=== PATIENT | male | born 1975 | race Caucasian/White ===

== ENCOUNTER → 2019-10-27 19:01 | Outpatient (ROUT) | payer SELFPAY ==
[2019-10-27 19:25] LABS: Hematocrit 46.6 % (41-53); Hemoglobin 15.7 g/dL (13.5-17.5); Mean Corpuscular HGB Conc 33.8 % (30-36); Mean Corpuscular Hemoglobin 29.9 PG (26-34); Mean Corpuscular Volume 88.4 fL (80-100); Platelet Count 361 X10^3/uL (150-400); Red Blood Cell Count 5.27 X10^6/uL (4.5-5.9); White Blood Cell Count 7.8 X10^3/uL (4.5-11.0)
[2019-10-27 19:27] LABS: Alanine Aminotransferase 38 IU/L (<50); Albumin 4.7 g/dL (3.5-5.0); Albumin Globulin Ratio 1.6 (1.0-2.8); Alkaline Phosphatase 71 U/L (38-126); Aspartate Aminotransferase 33 IU/L (17-59); BUN Creatinine Ratio 27.5 (6-22); Bilirubin Total 0.8 mg/dL (0.2-1.3); Blood Urea Nitrogen 22 mg/dL (9-20); Calcium 9.8 mg/dL (8.4-10.2); Carbon Dioxide 28 mmol/L (22-32); Chloride 98 mmol/L (98-107); Cholesterol 268 mg/dL (140-199); Estimated Glomerular Filt Rate > 60.0 mL/min (>60); Globulin 2.9 g/dL (1.7-4.1); Glucose 92 mg/dL (70-100); HDL Cholesterol 43 mg/dL (40-60); HEMOLYSIS < 15 (0-50); LDL Cholesterol Calculated 198 mg/dL (<100); Potassium 5.3 mmol/L (3.4-5.1); Sodium 135 mmol/L (137-145); Total Protein 7.6 g/dL (6.3-8.2); Triglycerides 136 mg/dL (35-150); Uric Acid 6.3 mg/dL (3.5-8.5)
[2019-10-27 19:28] LABS: Add Manual Diff / Slide Review YES
[2019-10-27 19:57] LABS: Neutrophils Absolute Manual 3900 /uL (3000-5900); Total Cells Counted 100
[2019-10-27 19:58] LABS: RBC Morphology Normal Morphology
== END ==
PROVIDERS: Visit Provider Nurse Practitioner
DX: M10.9 Gout, unspecified (principal); I10 Essential (primary) hypertension; R53.1 Weakness; E78.2 Mixed hyperlipidemia
CPT/HCPCS: 80053; 80061; 84443; 84550; 85025

== ENCOUNTER 2020-09-26 11:43 | Emergency (ER) | payer OTHER, SELFPAY ==
[2020-09-26 12:00] VITALS: BP 135/103; PULSE 97; RESP 18; TEMP 36.1; O2SAT 97; BMI 35.6
--- NOTE | 2020-09-26 12:21 | PC.NURSE ---
patient declines application of c-collar. patient has no tenderness to c-spine, normal ROM. Some stiffness noted. Dr Driscoll aware
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
[2020-09-26 12:53] VITALS: PULSE 98; O2SAT 98
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
[2020-09-26 13:08] VITALS: BP 154/102; PULSE 93; O2SAT 99
[2020-09-26 13:30] VITALS: BP 151/75; PULSE 87; O2SAT 97
[2020-09-26 14:00] VITALS: BP 151/89; PULSE 88; O2SAT 98
[2020-09-26 14:30] VITALS: BP 152/78; PULSE 87; O2SAT 98
[2020-09-26] MEDS: OFLOXACIN 0.3% OTIC 5 ML 3 DROPS EAR-RIGHT (15:22)
== END 2020-09-26 15:33 | disposition home or self-care (01) ==
PROVIDERS: Emergency Provider Nurse Practitioner Family; PCP Nurse Practitioner
DX: S09.301A Unspecified injury of right middle and inner ear, initial encounter (principal); S06.9X1A Unspecified intracranial injury with loss of consciousness of 30 minutes or less, initial encounter; W19.XXXA Unspecified fall, initial encounter
CPT/HCPCS: 70450; 99283; 99284

== ENCOUNTER 2020-09-29 20:06 | Emergency (ER) | payer OTHER, SELFPAY ==
[2020-09-29 20:13] VITALS: BP 179/112; PULSE 93; RESP 16; TEMP 36.3; O2SAT 100; BMI 35.6
--- NOTE | 2020-09-29 20:15 | PC.NURSE ---
Pt declines IV at this time after two unsuccessful attempts, also declines quality assurance monitor final.
--- NOTE | 2020-09-29 20:25 | DI.CT.S_ITS ---
PROCEDURE: CT STROKE INDICATIONS: code stroke TECHNIQUE: Noncontrast 4.5 mm thick angled axial sections acquired from the foramen magnum to the vertex, with coronal reformats. For radiation dose reduction, the following was used: automated exposure control, adjustment of mA and/or kV according to patient size. COMPARISON: [facility], CT, CT HEAD/BRAIN WO CON, 09/26/2020, 12:57. FINDINGS: Image quality: Excellent. CSF spaces: Basal cisterns are patent. No extra-axial fluid collections. Ventricles are normal in size and shape. Brain: No midline shift. No intracranial masses or hemorrhage. Mosley-white matter interface is normal. Skull and face: Calvarium and visualized facial bones are intact, without suspicious lesions. Nonspecific scattered subcutaneous scalp nodules may represent sebaceous cyst. Sinuses: Visualized sinuses and mastoids are clear. IMPRESSION: No acute intracranial abnormality. Findings were discussed with Dr. Daniel of the Emergency Department by telephone on 09/29/2020 at 8:39 PM. This study fulfills neurological imaging criteria for inclusion or exclusion of acute stroke therapies based on available published neurological imaging guidelines. Dictated by: Nael De Oliveira M.D. on 09/29/2020 at 20:37 Approved by: Nael De Oliveira M.D. on 09/29/2020 at 20:40
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
--- NOTE | 2020-09-29 21:30 | PC.NURSE ---
2100 I attempted an IV in Right forearm and girlfriend at bedside states he is uncomfortable and you're not getting it so I'm going to need you to take it out. I removed IV and attempted to explain to her and the patient that doctor wants him to have an IV and that this is a good vein if they will allow me to attempt it. Patient refuses IV at this time and states they already did a CT and didn't find anything. I want to go. Primary RN Lizeth informed.
[2020-09-29 21:41] LABS: Add Manual Diff / Slide Review NO; Basophils Absolute Auto 0 /uL (0-100); Basophils Percent Auto 0.4 % (0-2); Eosinophils Absolute Auto 200 /uL (0-450); Eosinophils Percent Auto 1.7 % (2-4); Hematocrit 45.9 % (41-53); Hemoglobin 15.8 g/dL (13.5-17.5); Lymphocytes Absolute Auto 2700 /uL (1100-4500); Lymphocytes Percent Auto 26.8 % (25-40); Mean Corpuscular HGB Conc 34.4 % (30-36); Mean Corpuscular Hemoglobin 30.4 PG (26-34); Mean Corpuscular Volume 88.4 fL (80-100); Monocytes Absolute Auto 800 /uL (0-900); Monocytes Percent Auto 7.7 % (3-14); Neutrophils Absolute Auto 6400 /uL (1500-7000); Neutrophils Percent Auto 63.4 % (50-75); Platelet Count 243 X10^3/uL (150-400); Red Blood Cell Count 5.19 X10^6/uL (4.5-5.9); Red Cell Distribution Width 13.6 % (11.6-14.8); White Blood Cell Count 10.1 X10^3/uL (4.5-11.0)
[2020-09-29 21:49] LABS: INR 1.1 (0.9-1.3); Prothrombin Time 12.4 SECONDS (10.1-12.7)
[2020-09-29 21:51] LABS: PTT Partial Thromboplastin Tim 32 SECONDS (26.4-36.2)
[2020-09-29 21:53] LABS: Alanine Aminotransferase 33 IU/L (<50); Albumin 4.5 g/dL (3.5-5.0); Albumin Globulin Ratio 1.3 (1.0-2.8); Alkaline Phosphatase 80 U/L (38-126); Aspartate Aminotransferase 27 IU/L (17-59); Bilirubin Total 0.7 mg/dL (0.2-1.3); Blood Urea Nitrogen 18 mg/dL (9-20); Carbon Dioxide 29 mmol/L (22-32); Chloride 102 mmol/L (98-107); Creatine Kinase 64 U/L (55-170); Estimated Glomerular Filt Rate > 60.0 mL/min (>60); Globulin 3.6 g/dL (1.7-4.1); Glucose 103 mg/dL (70-100); HEMOLYSIS < 15 (0-50); Lipase 117 U/L (23-300); Potassium 4.3 mmol/L (3.4-5.1); Sodium 136 mmol/L (137-145); Total Protein 8.1 g/dL (6.3-8.2)
[2020-09-29 21:55] VITALS: PULSE 87; O2SAT 100
[2020-09-29 21:57] LABS: COVID19 -Nasal RAPID Negative (Negative)
[2020-09-29 22:00] VITALS: BP 138/92; PULSE 91; O2SAT 99
[2020-09-29 22:05] LABS: Troponin I < 0.012 ng/mL (0.01-0.034)
[2020-09-29 22:13] LABS: Ethanol (ETOH) < 10 mg/dL
[2020-09-29 22:30] VITALS: BP 144/94; PULSE 86; O2SAT 100
--- NOTE | 2020-09-29 22:55 | DI.CT.S_ITS ---
PROCEDURE: CT MASTOID TEMPORAL INDICATIONS: possible r temp bone fx COMPARISON: None. TECHNIQUE: Noncontrast 0.6 mm thick direct axial and coronal sections acquired through each temporal bone separately. FINDINGS: Image quality: Excellent. RIGHT: External auditory canal: There is a cerumen plug within the external auditory canal measuring roughly 14 mm transverse by 6 mm craniocaudal. Middle ear: There is moderate low density material within the middle ear cavity, encasing the ossicles as well as the tympanic membrane. Inner ear: Inner ear is normally formed and appears unremarkable. Facial nerve appears normal throughout is course. Mastoids: Moderate right mastoid fluid is present. There is a new 18 mm lucency surrounding the right 2nd molar. LEFT: External auditory canal: Canal has a normal appearance. Middle ear: The middle ear structures, including the ossicles and tympanic membrane, appear normal. No abnormal fluid or soft tissue density. Inner ear: Inner ear is normally formed and appears unremarkable. Facial nerve appears normal throughout its course. Mastoids: Mastoid air cells are clear. MISCELLANEOUS: Visualized surrounding bones appear unremarkable. Visualized intracranial structures, including the cerebellopontine angle cisterns, appear normal. IMPRESSION: 1. Cerumen plug within the right external auditory canal. 2. Abnormal low-density material within the right middle ear cavity, consistent with a tight is media. Underlying cholesteatoma cannot be excluded. 3. Large cavity surrounding a right upper molar. Dental consultation is recommended. Dictated by: Marin Maria M.D. on 09/30/2020 at 7:20 Approved by: Marin Maria M.D. on 09/30/2020 at 7:25
[2020-09-29 23:00] VITALS: BP 142/93; PULSE 87; O2SAT 100
[2020-09-29 23:34] VITALS: PULSE 86; O2SAT 100
[2020-09-30] MEDS: predniSONE 20 MG TABLET 40 MG PO (01:03)
[2020-09-30] MEDS: ONDANSETRON 4 MG ODT PREPACK 1 BOTTLE MISC (01:04)
[2020-09-30 01:06] VITALS: BP 132/90; PULSE 88; RESP 17; O2SAT 100
== END 2020-09-30 01:07 | disposition home or self-care (01) ==
PROVIDERS: Emergency Provider Emergency Medicine; PCP Nurse Practitioner
DX: S06.0X1A Concussion with loss of consciousness of 30 minutes or less, initial encounter (principal); G51.0 Bell's palsy; S09.30 Unspecified injury of middle and inner ear; R51.9 Headache, unspecified; R42 Dizziness and giddiness; H92.01 Otalgia, right ear; W22.8XXA Striking against or struck by other objects, initial encounter; Y99.0 Civilian activity done for income or pay
CPT/HCPCS: 36415; 70450; 70480; 80053; 80320; 82550; 83690; 84484; 85025; 85610; 85730; 87635; 93005; 99284; 99285